=== PATIENT | female | born 1965 | race Caucasian/White ===

== ENCOUNTER → 2017-06-12 | Outpatient (CLI) | payer MEDICAID ==
[~2017-06-12] MED LIST: COUMADIN 5MG TAB5 MG PO
--- NOTE | 2017-06-12 11:18 | RADIOLOGY REPORT PS360 ---
KNEE-4 OR 5 VIEWS-RT HISTORY: RT KNEE PAIN ORDERING PHYSICIAN: Marquise Jim MD PATIENT AGE: 51 years COMPARISON: None FINDINGS: Moderate to severe osteoarthritic changes are present at the medial compartment and patellofemoral joint. Prominent osteophytes are present at the posterior patella and medial compartment. No acute fracture or dislocation. Surgical clips are present about the knee. No lytic or blastic change. There may be a small suprapatellar effusion IMPRESSION: Moderate to severe osteoarthritis of the right knee
== END ==
LOC: RAD 10:10
DX: M25.561 Pain in right knee (principal)